=== PATIENT | male | born 1970 | race Caucasian/White ===

== ENCOUNTER 2025-03-13 11:00 | Outpatient (AMB) | payer BC, SELFPAY ==
--- NOTE | 2025-03-13 11:02 | A.OFFPC_ITS ---
Vital Signs 3 03/13/25 11:06 Height 5 ft 10 in Weight 204 lb 6 oz BMI 29.3 BP 138/78 Blood Pressure Location Rt brachial Position Sitting Respiration 14 Pulse 55 Pulse Source Pulse Oximeter Temp 97.5 F Temp Source Oral Pulse Oximetry (%) 99 Oxygen Delivery Method Room Air Intake Visit Reasons: CPE Intake Note: New patient to establish care and cpe Commercial Stripper Required: No Allergies theophylline Allergy (Mild, Verified 03/13/25 11:49) Angioedema tree nut Allergy (Mild, Verified 03/13/25 11:49) Anaphylaxis Medication List - Last Reviewed 03/13/25 by Blair Pham MA albuterol sulfate 90 mcg/actuation 2 puffs inhalation Q4H PRN omeprazole 20 mg PO QAM Tobacco use date assessed: 03/13/25 Dental Screening Dental Screen Date: 03/13/25 Did you have a dental visit in the last 12 months?: Yes Did you have a dental problem in the last 6 months where you did not have access to dental care?: No Was dental information given to patient?: Patient has dentist HPI HPI Comments 2 History of Present Illness0 Details Willie 54 y/o M GERD, Epiphoria L Eye, Asthma, chronic back pain with radicular sx of RLE, fhx colon ca (MGF), HLD, HTN, personal hx colonic polyps, elevated lipoprotein A, Vit D def, eczema, warthins tumor s/p vasectomy, chondroblastoma R elbow, wisdom teeth Social: works as real estate accountant for [employer]; lives w/ girlfriend Fhx: Mom HTN; Dad 75 lung cancer; 2 1/2 brothers alive and well (paternal); 1 sister HTN; son 23, dtr 20, dtr 14 alive and well. MGM complications from stroke; MGF colon ca around age 66; PGM old age 94; PGF 97 BKA; unknown cancer paternal uncle . Health Maintenance Colon 2017 Tdap 03/13/25 Flu 03/13/2025 Specialists: Dr Encinas one time consult Dr Sol wears glasses Here today to [facility] records rec'd and reviewed Asthma intermittent, prn albuterol < 2 week. No hospitalizations. Was on Advair. I dont think he needs that now. Rather update his vaccines and monitor, Use BENEDICT prophylactially becore triggers such as yard work or cold exposure. Colon polyp personal hx, fhx CRC, overdue for repeat colonoscopy, last around 2018, [facility]. Report pending. [facility] referral placed. Tree nut allergy needs Epi pen. Rx sent Epiphoria L eye, consulted w/ Dr Huang nieto 1; didnt agree w/ treatment plan; will seek consult in [facility]; doesnt bother him most part. Chronic LBP with RLE radicular sx, present for years; managed w/ chiro in the past Chronic R shoulder pain, known hx of tendinosis and partial tear, MRI done 2016, saw [facility] in the past HX of HTN and HLD not on meds. BP good today. Check labs. R neck/jaw mass, US done along w/ bx which showed Warthins tumor, was referred to ENT but this appt never happened. Feels pain and increase in size. Plan to refer to eNT in [place] and update US. HX of GERD w/ PPI use; uses PRN tums and rolaids + effects, avoids food trigger. Exam Awake alert NAD RRR LS CTAB Mood and affect appropriate Plan as above Return to office in 6 weeks to review labs and for CPE, sooner PRN Total time spent caring for the patient today was 45 minutes. This includes time spent before the visit reviewing the chart, time spent during the visit, and time spent after the visit on documentation, reviewing laboratory results, diagnostic imaging, medications, performing a medically necessary evaluation, counseling on diagnoses, care coordination, ordering appropriate tests, ordering appropriate medications, review of tests performed by other providers, reporting test results with the patient, communication with other healthcare providers. PFSH Medical History (Updated 03/13/25 @ 12:10 by Katiuska Miles, VAISHALI-JIMENEZ) Anxiety Asthma Benign chondroblastoma of bone Eczema GERD (gastroesophageal reflux disease) HLD (hyperlipidemia) HTN (hypertension) Vitamin D deficiency Surgical History (Updated 03/13/25 @ 12:09 by VAISHALI Evans-JIMENEZ) Hx of colonoscopy (~2017) S/P vasectomy Family History (Updated 03/13/25 @ 11:14 by Blair Pham MA) Mother HTN (hypertension) Maternal Grandmother HTN (hypertension) Diabetes Cancer Paternal Grandfather Clotting disorder Father Cancer Paternal Grandfather Cancer Social History (Updated 03/13/25 @ 11:08 by Blair Pham MA) Household Members: Significant Other Both parents involved: No Caregiver staying overnight: No Housing: House Are you a primary care team coordinator scheduler to a significant other at home: Yes Do you presently have visiting nurse or other home services: No 75 years or older and lives alone: No Alcohol intake: current Alcohol intake frequency: a few times a month Patient Tobacco Use Status: Never used Tobacco e-Cigarette/Vaping Use: Never Used Second Hand Smoke Exposure: No service: No Current occupational status: employed Current occupation: account management Current occupational exposures/hazards: No Cognitive needs: No Hearing needs: No Vision needs: Yes (wear glasses) Questionnaire PHQ-9 Over the last 2 weeks, how often have you been bothered by any of the following problems? 1. Little interest or pleasure in doing things: not at all 2. Feeling down, depressed, or hopeless: not at all 3. Trouble falling or staying asleep, or sleeping too much: several days 4. Feeling tired or having little energy: not at all 5. Poor appetite or overeating: not at all 6. Feeling bad about yourself - or that you are a failure or have let yourself or your family down: not at all 7. Trouble concentrating on things, such as reading the newspaper or watching television: not at all 8. Moving or speaking so slowly that other people could have noticed. Or the opposite - being so fidgety or restless that you have been moving around a lot more than usual: not at all 9. Thoughts that you would be better off or of hurting yourself in some way: not at all Total score: 1 Depression Screening Interpretation: Negative Depression Screening Done: Yes 06161 - PHQ-9 Billing: Yes Source: Developed by Drs. Emile Zimmerman, Gladys Howard, Tone Joseph and colleagues, with an educational leodan from [employer]. Thrive Questionnaire Date Thrive assessed: 03/13/25 I am a: Patient What is your living situation today?: I have a steady place to live Within the past 12 months, did the food you bought not last and you didn't have the money to get more?: Never true Within the past 12 months, did you worry whether your food would run out before you got money to buy more?: Never true Do you have trouble paying for medicines?: No Do you have trouble getting transportation to medical appointments?: No Do you have trouble paying your heating and electricity bill?: No Do you have trouble taking care of your child, family member or friend?: No Do you have trouble with day-to-day activities such as bathing, preparing meals, shopping, managing finances, etc.?: No Are you currently unemployed and looking for a job?: No Are you interested in more education?: No Please select the resources that you would like help with: None Currently or been in a relationship where the following occur: I choose not to answer THRIVE Score: 0 AUDIT C Alcohol Use Questionnaire (AUDIT-C) 1. How often do you have a drink containing alcohol?: Monthly or less 2. How many drinks containing alcohol do you have on a typical day when you are drinking?: 1 or 2 3. How often do you have six or more drinks on one occasion?: Less than monthly Total Score: 2 Score Reviewed/Action Taken: Yes HEATH-7 AMB Questionnaire HEATH-7 Date HEATH - 7 assessed: 03/13/25 Feeling nervous, anxious, or on edge: 1 = Several days Not being able to stop or control worryin = Several days Worrying too much about different things: 1 = Several days Trouble relaxin = Not at all Being so restless that it is hard to sit still: 1 = Several days Becoming easily annoyed or irritable: 0 = Not at all Feeling afraid as if something awful might happen: 0 = Not at all Total HEATH-7 score (0-4 normal; 5-9 mild; 10-14 moderate; 15-21 severe): 4 Source: Developed by Drs. Emile Zimmerman, Gladys Howard, Tone Joseph and colleagues, with an educational leodan from [employer]. HEATH-7 Assessment Billing HEATH-7 Assessment Tool: HEATH-7 Assessment 67474 ACT Questionnaire In the past 4 weeks, how much of the time did your asthma keep you from getting as much done at work, school or at home?: None of the time During the past 4 weeks, how often have you had shortness of breath?: Not at all During the past 4 weeks, how often did your asthma symptoms wake you up at night or earlier than usual in the morning?: Not at all During the past 4 weeks, how often have you had to use your rescue inhaler or nebulizer medication?: Not at all How would you rate your asthma control during the past 4 weeks?: Completely controlled ACT Interpretation: Negative Score: 25 Physical exam (Primary Care) Vital Signs: Last Vital Signs Temp 97.5 F 03/13/25 11:06 Pulse 55 03/13/25 11:06 Resp 14 03/13/25 11:06 BP 138/78 03/13/25 11:06 Pulse Ox 99 03/13/25 11:06 Oxygen Delivery Method Room Air 03/13/25 11:06 BMI result Body Mass Index 29.3 Tobacco/Smoking Status: Tobacco use Status Tobacco use date assessed 03/13/25 03/13/25 11:08 Patient Tobacco Use Status Never used Tobacco 03/13/25 11:08 e-Cigarette/Vaping Use Never Used 03/13/25 11:08 PHQ-9: PHQ-9 Score PHQ-9: Total score 1 03/13/25 11:14 Depression Screening Interpretation: Negative Thrive Assessment: Date of Thrive Assessment Date Thrive assessed 03/13/25 03/13/25 11:08 Currently or been in a relationship where the following occur: I choose not to answer [facility] Head images: 2 1. palpable mobile well defined mass Office Procedures Flu Questionnaire Does the patient have a severe egg allergy?: No Does the patient have severe life threatening allergies?: No Does the patient have a fever or illness today?: No Has the patient ever had Guillain-[place] Syndrome?: No Has the patient ever had any past reaction to a flu shot?: No Immunizations Fluarix [id number] (PF) 45 mcg (15 mcg x 3)/0.5 mL IM syringe Performing Provider: ANUSHKA Evans Performing Location: [facility] Administered by: Blair Pham MA on 03/13/25 11:58 2 Dose Route Admin Location Dispensed Lot Number Expiration Date [facility] Furniture Sprayer 0.5 mL IM Left Deltoid 0.5 mL [id number] 09/22/25 [id number] [employer] 2 VIS Given Date VIS Provided VIS Publication Date 03/13/25 Single Vaccine 24 Eligibility Eligibility Date Funding Source Not [facility] Eligible 03/13/25 Private Boostrix Tdap 2.5 Lf unit-8 mcg-5 Lf/0.5 mL intramuscular syringe Performing Provider: ANUSHKA Evans Performing Location: [facility] Administered by: Blair Pham MA on 03/13/25 11:58 2 Dose Route Admin Location Dispensed Lot Number Expiration Date NDC Furniture Sprayer 0.5 mL IM Right Deltoid 0.5 mL [id number] 09/05/27 [id number] [employer] 2 Total Dispensed Waste 0.5 mL 0 % 2 VIS Given Date VIS Provided VIS Publication Date 03/13/25 Single Vaccine 20 Eligibility Eligibility Date Funding Source Not [facility] Eligible 03/13/25 Private Results Reviewed Results Reviewed: Coding Level of Care Code New Pt Level 4 (34014) Add On Problem Visit Only Diagnoses Encounter to establish care with new provider Z76.89 Influenza vaccination administered at current visit Z23 Need for Tdap vaccination Z23 Mild intermittent asthma without complication J45.20 Asthma complication type: uncomplicated Laboratory exam ordered as part of routine general medical examination Z00.00 Family history of colon cancer Z80.0 Tree nut allergy Z91.018 Chronic radicular low back pain M54.16; G89.29 Warthin's tumor D11.9 Elevated lipoprotein A level E78.41 Additional Codes HEATH-7 Assessment Billing - HEATH-7 Assessment Tool: HEATH-7 Assessment 19951 ([id number]) PHQ-9 - 55083 - PHQ-9 Billing: Yes ([id number]) Asthma Control Questionnaire - ACT Interpretation: Negative ([id number]) Assessment & Plan Assessment & Plan (1) Encounter to establish care with new provider: Code(s): Z76.89 - Persons encountering health services in other specified circumstances (2) Influenza vaccination administered at current visit: Onset Date: ~03/13/25 Code(s): Z23 - Encounter for immunization Category: Medical (3) Need for Tdap vaccination: Onset Date: ~03/13/25 Code(s): Z23 - Encounter for immunization Category: Medical (4) Mild intermittent asthma: Code(s): J45.20 - Mild intermittent asthma, uncomplicated Category: Medical Qualifiers: Asthma complication type: uncomplicated Qualified Code(s): J45.20 - Mild intermittent asthma, uncomplicated (5) Laboratory exam ordered as part of routine general medical examination: Code(s): Z00.00 - Encounter for general adult medical examination without abnormal findings Category: Medical (6) Family history of colon cancer: Code(s): Z80.0 - Family history of malignant neoplasm of digestive organs Category: Medical (7) Tree nut allergy: Code(s): Z91.018 - Allergy to other foods Category: Medical (8) Chronic radicular low back pain: Code(s): M54.16 - Radiculopathy, lumbar region; G89.29 - Other chronic pain Category: Medical (9) Warthin's tumor: Code(s): D11.9 - Benign neoplasm of major salivary gland, unspecified Category: Medical (10) Elevated lipoprotein A level: Code(s): E78.41 - Elevated Lipoprotein(a) Category: Medical Plan . Orders: Orders 2 Hemoglobin A1c Today Z00.00 - Encounter for general adult medical examination without abnormal findings Vitamin B12 and Folate Today Z00.00 - Encounter for general adult medical examination without abnormal findings Influenza [id number] Immunization Today Z23 - Encounter for immunization TDaP Immunization Today Z23 - Encounter for immunization Complete Blood Count no Diff Today Z00.00 - Encounter for general adult medical examination without abnormal findings Comprehensive Met. Panel Today Z00.00 - Encounter for general adult medical examination without abnormal findings Lipid Panel Today Z00.00 - Encounter for general adult medical examination without abnormal findings Microalbumin, Random (w Creat) Today Z00.00 - Encounter for general adult medical examination without abnormal findings Prostate Specific Antigen Scr Today Z00.00 - Encounter for general adult medical examination without abnormal findings TSH reflex Free T4 Today Z00.00 - Encounter for general adult medical examination without abnormal findings UA CC w/rflx Micro + Cult Today R30.0 - Dysuria, Z00.00 - Encounter for general adult medical examination without abnormal findings Vitamin D 25-OH Total Today Z00.00 - Encounter for general adult medical examination without abnormal findings US soft tiss head and/or neck Today M27.40 - Unspecified cyst of jaw Referrals 2 Gastroenterology Referral Z12.11 - Encounter for screening for malignant neoplasm of colon, Z80.0 - Family history of malignant neoplasm of digestive organs Ear/Nose/Throat Referral D11.9 - Benign neoplasm of major salivary gland, unspecified Medications: New 2 albuterol sulfate 90 mcg/actuation 2 puffs inhalation Q6H PRN 8.5 grams 2RF shortness of breath or wheezing epinephrine (EpiPen 2-Jeancarlos) for 2 doses 0.3 mg (0.3 mL) IM Q10M PRN 2 ea 1RF anaphylaxis Patient Instructions: Walk-In Care (Urgent Care): We Make it Easy Walk-in for urgent medical issues such as: ? Seasonal Allergies ? Insect Bites ? Cough ? Diarrhea ? Acute Asthma Attacks ? Back, Knee or Joint Pain ? Ear Infection ? Fever without a Rash ? Headaches ? Nausea ? [place] Eye, Rash or Skin Irritation ? Sore Throat ? Sports Physicals ? Vomiting Most insurances are accepted. Patients do not need to be part of the [facility] to seek care at the walk-in clinic. Locations [address] [place] [address] Open Sunday through Sunday 8am-5pm *Hours may vary due to staffing availability. To confirm Walk-In Care hours please call. [facility] , [place] [address] ? [phone] [facility] Walk-In Care in [place] provides services to ages 18 and over. Open Sunday-Sunday: 7 a.m. to 5 p.m. and Sunday: 9 a.m. to 3 p.m.* *Hours may vary due to staffing availability. To confirm Walk-In Care hours in [place], please call [phone]. [address] [place] [address] ? [phone] [facility] Walk-In Care in [place] provides services to ages 12 and over. Open Sunday-Sunday: 8 a.m. to 5 p.m. Hours may vary due to staffing availability. To confirm Walk-In Care hours in [place], please call [phone]. LABORATORY SERVICES: [facility] Lab ? Primary Location [address] [place] [address] Sunday through Sunday 6:00 AM ? 5:00 PM Sunday 7:00 AM ? 11:00 AM* [phone] The [facility] Lab is centrally located near the front entrance of the Medical Center for easy outpatient access. Convenient parking is provided for outpatients. *Hours may vary due to staffing availability. To confirm Laboratory hours for any location, please call [phone]. Offsite Location For your convenience, we offer offsite laboratory draw stations at the following locations: [address] [facility] [place] ? [facility] [address], [address], [place] Sunday through Sunday 7:30 AM ? 1:00 PM* [phone] *Hours may vary due to staffing availability. To confirm Laboratory hours for any location, please call [phone]. [place] ? [facility] [address] [facility] [place] Sunday through Sunday 6:00 AM ? 3:30 PM* Sunday 6:30 AM ? 3 PM* [phone] *Hours may vary due to staffing availability. To confirm Laboratory hours for any location, please call [phone] [place] [address] Sunday through Sunday 7:30 AM ? 4:00 PM* [phone] *Hours may vary due to staffing availability. To confirm Laboratory hours for any location, please call [phone] [place] [address] Sunday through 9:00 AM ? 4:00 PM* *Hours may vary due to staffing availability. To confirm Laboratory hours for any location, please call [phone]. Appointments are not necessary. Walk-ins are welcome. Like all the departments throughout the [facility], our Lab undergoes frequent reviews to ensure the quality and accuracy of test results, and our staff takes special pride in its status as a nationally accredited facility. Patient Portal: [facility] ONE PATIENT. ONE RECORD. BETTER CARE. [facility] has a fully integrated, cutting- edge mobile electronic health information system that has revolutionized the way we care for our patients and manage our organization. This system improves communication and coordination enabling us to provide safe, higher-quality care, and an overall positive experience for staff and patients. Our first priority, as always, is to deliver the highest quality care possible. The system is running in the background supporting that priority. This portal is for all [facility] services and practices. If you are experiencing any technical difficulties with enrolling or logging into the Patient Portal please complete the [facility] Patient Portal Technical Support Form. [facility] now offers a new secure on-line interactive tool for patients to review their health information ? ?Patient Portal. This interactive web portal will enable patients and their families to take an active role in their care by providing easy, secure access to their health information via the internet. The Patient Portal provides patients with instant access to their health information, including laboratory results, medications, allergies, demographic information, visit history, and more. In addition to managing their own care, parents and health care proxies with authorized consent will appreciate the ability to access the records of those individuals for whom they provide care. Please note: if you wish to gain access (Proxy) to another patient?s portal, you will be required to come to the Medical Records Department in person at [facility]. Both the patient giving proxy access and the proxy will need to provide photo identification and complete the appropriate authorization. The Patient Portal also allows track their appointments online. The [facility] Patient Portal also saves patients time by allowing them to submit updates to their demographic and contact information prior to their visits. Portal email notifications will also alert patients to any new activity on their portal, such as test results and new appointments. In order to initially enroll in the [facility] Patient Portal, you will need to enter some required information including the following: * your [facility] Medical Record number * your personal home email address * name * date of Please note: In order to enroll in the [facility] Patient Portal, we need to have your email address on file in your electronic medical record. ?The email address needs to be specific for one person (yourself) in order for your Portal enrollment to be successful. ?You can update your email address in person with our Registration staff when you are registering for a hospital visit. ?Otherwise, you will need to come to the Health Information Management (Medical Records) Department at [facility]. ?We are open from Sunday ? Sunday from 7:30 a.m. ? 4:30 p.m. ?You will be required to present a photo id. Once you have successfully enrolled in the Patient Portal, you will receive a one-time user id and password for the Portal, sent to your email address. ?This will allow you to log into the Patient Portal within 99 hrs and reset your own logon id and password, and define personal security questions. ?Once your permanent login and password have been set, you can log into the [facility] Patient Portal at any time via the blue button above or from the Portal Logon button on any page of the [facility] website. [facility] encourage all of our patients to enroll in Patient Portal as it presents a valuable opportunity for patients and their families to actively participate in their care and stay healthy Welcome to [facility]. ?We look forward to working with you.
[2025-03-13 11:06] VITALS: BP 138/78; PULSE 55; RESP 14; TEMP 36.4; O2SAT 99; BMI 29.3
--- OUTSIDE RECORDS SUMMARY | 2025-03-13 12:55 | XMS_ITS | Patient Health Record ---
Author Organization [facility] Address [address] [place] [address] Care Team Providers Care Department Sales Manager Name Role Phone Israel ROCHE, Tristan Primary Care Provider Unavail able Saundra Lindsey Unavailable [phone] Allergies Allergen (clinical drug ingredient) Drug/Non Drug Allergy documented on EMR Reaction Allergy Type Onset Date Status theophylline Theophylline rash Drug Allergy A ctive Reason For Referral No Information Medications Medication SIG (Take, Route, Frequency, Duration) Notes Start Date End Date Status Night Splint AFO - L1930 as directed 03/03/2015 Active Advair HFA Active Albuterol 03/02/2015 Active Problems No Known Problems Plan Of Treatment No Information Insurance Providers Payer Name Payer Address Payer Phone Subscriber Number Group Number Insured Name Patient Relationship to Insured Coverage Start Date Coverage End Date [facility] [address] [place] [address] [id number] Roxi Diallo Spouse - patient is the spouse of the insured Medical (General) History Medical History History ICD Code asthma Chicken pox Transfusions-at Surgical History Surgery Date(Month/Year) removal of chondroblastoma in rt elbow
== END 2025-03-13 11:51 | disposition home or self-care (01) ==
LOC: HO.HMCFM 11:01
PROVIDERS: PCP Nurse Practitioner Family; Visit Provider Nurse Practitioner Family
DX: Z76.89 Persons encountering health services in other specified circumstances (principal); Z23 Encounter for immunization; J45.20 Mild intermittent asthma, uncomplicated; Z00.00 Encounter for general adult medical examination without abnormal findings; Z80.0 Family history of malignant neoplasm of digestive organs; Z91.018 Allergy to other foods; M54.16 Radiculopathy, lumbar region; G89.29 Other chronic pain; D11.9 Benign neoplasm of major salivary gland, unspecified; E78.41 Elevated Lipoprotein(a)

== ENCOUNTER → 2025-03-13 11:00 | Outpatient (BNVA) | payer BC, SELFPAY | PROVIDERS: PCP Nurse Practitioner Family; Visit Provider Nurse Practitioner Family | DX: Z13.31 Encounter for screening for depression (principal); Z13.39 Encounter for screening examination for other mental health and behavioral disorders; Z23 Encounter for immunization; Z71.89 Other specified counseling | CPT/HCPCS: 90471; 90472; 90656; 90715; 96127; 96160 ==

== ENCOUNTER 2025-03-16 09:33 | Outpatient (REF) | payer BC, SELFPAY ==
--- OUTSIDE RECORDS SUMMARY | 2025-03-16 10:56 | XMS_ITS | Patient Health Record ---
[facility] Address [address] [place] [address] Care Team Providers Care Demurrage Clerk Name Role Phone Israel ROCHE, Tristan Primary Care Provider Unavail able Saundra Lindsey Unavailable [phone] Allergies Allergen (clinical drug ingredient) Drug/Non Drug [...] Insured Coverage Start Date Coverage End Date [facility] [address] [place] [address] [id number] Roxi Diallo Spouse - patient is the spouse of the insured Medical (General) History Medical History History ICD Code asthma Chicken pox Transfusions-at Surgical History Surgery Date(Month/Year) removal of chondroblastoma in rt elbow
[2025-03-16 11:10] LABS: Appearance Urine Clear; Glucose Urine UA Negative (Negative); PH 6.5 (5.0-9.0); Specific Gravity - Urine 1.020 (1.005-1.025)
[2025-03-16 11:24] LABS: Hematocrit 44.1 % (42.0-52.0); Hemoglobin 14.6 g/dl (14.0-18.0); Mean Corpuscular HGB Conc 33.1 g/dl (31.0-36.0); Mean Corpuscular Hemoglobin 32.5 pg (27.0-33.0); Mean Corpuscular Volume 98.2 fL (80.0-98.0); NRBC Abs Auto 0.000 X10*3/uL (0.0-0.012); NRBC Pct Auto 0.0 /100WBC (0.0-0.2); Platelet Count 270 X10*3/uL (160-400); Red Blood Count 4.49 X10*6/uL (4.60-5.80); White Blood Count 5.9 X10*3/uL (4.8-10.8)
[2025-03-16 11:47] LABS: Alanine Aminotransferase 24 U/L (0-40); Albumin Level 4.4 g/dL (3.5-5.0); Alkaline Phosphatase 54 U/L (39-117); Anion Gap 11 (12-20); Aspartate Amino Transferase 27 U/L (5-37); Blood Urea Nitrogen 18 mg/dL (9-16); Calcium 9.2 mg/dL (8.4-10.2); Carbon Dioxide 25 mmol/L (22-29); Chloride 109 mmol/L (96-108); Cholesterol 163 mg/dL (<200); Estimated Glomerular Filt Rate > 60; HDL Cholesterol 53 mg/dL (>40); Potassium 3.9 mmol/L (3.3-5.1); Sodium 141 mmol/L (135-145); Total Protein 6.9 g/dL (6.5-8.0); Triglycerides 136 mg/dL (<150)
[2025-03-16 12:06] LABS: Microalbum/Creatinine Ratio Ur 6.3 ug/mg cr (<30)
[2025-03-16 12:07] LABS: Folate 10.0 ng/mL (> or = 4.0); Vitamin B12 183 pg/mL (200-900)
== END 2025-03-16 09:34 | disposition home or self-care (01) ==
LOC: HO.WFDLDS 09:33
PROVIDERS: Visit Provider Nurse Practitioner Family
DX: Z00.00 Encounter for general adult medical examination without abnormal findings (principal); R30.0 Dysuria; Z12.5 Encounter for screening for malignant neoplasm of prostate; Z13.1 Encounter for screening for diabetes mellitus; Z13.6 Encounter for screening for cardiovascular disorders; Z13.21 Encounter for screening for nutritional disorder; Z13.29 Encounter for screening for other suspected endocrine disorder
CPT/HCPCS: 36415; 80053; 80061; 81003; 82043; 82306; 82570; 82607; 82746; 83036; 84153; 84443; 85027